=== PATIENT | female | born 1950 | race Hispanic/Latino ===

== ENCOUNTER → 2020-03-13 | Day surgery (SDC) | payer MEDICARE, OTHER ==
[2020-03-10 11:58] LABS: BASOPHILS # (AUTO) 0.1 (0.0-0.1); BASOPHILS % 0.5 % (0.0-1.0); EOSINOPHILS # (AUTO) 0.1 (0.0-0.4); EOSINOPHILS % 1.2 % (0.0-6.0); HEMATOCRIT 43.9 % (38.2-49.6); HEMOGLOBIN 14.1 g/dL (14.0-18.0); LYMPHOCYTES # (AUTO) 2.4 (1.0-3.2); LYMPHOCYTES % 21.2 % (18.0-39.1); MEAN CORPUSCULAR HGB CONC 32.1 g/dL (31-35); MEAN CORPUSCULAR VOLUME 84.1 fL (81-99); MONOCYTES # (AUTO) 0.8 (0.2-0.8); MONOCYTES % 6.8 % (4.4-11.3); NEUTROPHILS # (AUTO) 7.8 (2.1-6.9); NEUTROPHILS % 69.7 % (38.7-80.0); PLATELET COUNT 337 x10e3/uL (140-360); RED BLOOD COUNT 5.22 x10e6/uL (4.3-5.7); RED CELL DISTRIBUTION WIDTH 14.4 % (11.7-14.4)
[~2020-03-13] MED LIST: FENTANYL CITRATE/PF 100MCG/2 ML INJ ONE; GABAPENTIN300 MG PO; GLUCAGON FOR INJ 1 MG VIAL ONE; GLYCOPYRROLATE INJ 0.2 MG/ML VIAL ONE; HYOSCYAMINE 0.125 MG TAB ONE; LIDOCAINE HCL 2% LOCAL INJ 5 ML SDV VIAL INJ ONE; METHOCARBAMOL750 MG PO; MIDAZOLAM HCL 2 MG/2 ML VIAL ONE; NORCO 5-325 TA1 EACH PO; PROPOFOL IV EMULSION 10 MG/ML 20 ML VIAL ONE
--- OUTSIDE RECORDS SUMMARY | 2020-03-13 09:41 | XMS REPORT | Continuity of Care Document ---
Author Author [employer] Address Unknown Phone Unavailable Care Team Providers Care Mobile Sales Assistant Name Role Phone [employer] Unavailable Un available Problems Problem Status Onset Date Classification Date Reported Comments Source Primary osteoarthritis of left hand Active Problem Gio Herring Piriformis syndrome of right side Active Problem Gio Herring Primary osteoarthritis, right hand Active Problem Gio Herring Other chronic pain Active Problem 04/26/2018 Gio Herring Right hip pain Active Problem 04/26/2018 Gio Herring Pain in right knee Active Problem 04/26/2018 Gio Herring Bursitis of right hip Active Problem 04/26/2018 Gio Herring Encounter for long-term (current) use of other medications Active Prob kadie 04/26/2018 Gio Herring Lumbago with sciatica, right side Active Diagnosis 0 04/26/2018 Gio Herring Lumbar and sacral arthritis Ac tive Diagnosis 0 04/26/2018 Gio Herring Medications Medication Details Route Status Patient Instructions Ordering Provider Order Date Source Naproxen 1 tablet Orally Active 500 MG Orally Twice a d ay Fakoya 10/25/2017 Gio Herring Omeprazole 1 capsule Orally Active 20 MG Orally Once a day Nima Herring Meloxicam 1 tablet Orally Active 15 MG Orally Once a day as needed Nima Herring Naproxen 1 tablet with food or milk as needed Orally Active 500 MG Orally Once a day with food Nima Herring Allergies, Adverse Reactions, Alerts Substance Category Reaction Severity Reaction type Status Date Reported Comments Source Codein Adverse Reaction shortness of breath Adverse Reaction Active 04/17/2018 Gio Herring Immunizations No Data Provided for This Section Results No Data Provided for This Section Pathology Reports No Data Provided for This Section Diagnostic Reports No Data Provided for This Section Consultation Notes No Data Provided for This Section Discharge Summaries No Data Provided for This Section History and Physicals No Data Provided for This Section Vital Signs Vital Sign Value Date Comments Source Weight 135 04/17/2018 Gio Herring Height 57 0 04/17/2018 Gio Herring Temperature Oral (F) 97.6 F 04/17/2018 Gio Herring Heart Rate 56 04/17/2018 Gio Herring Diastolic (mm Hg) 60 04/17/2018 Gio Herring Systolic (mm Hg) 108 04/17/2018 Gio Herring Systolic (mm Hg) 118 01/15/2018 Gio Herring Weight 133 01/15/2018 Gio Herring Height 57 0 01/15/2018 Gio Herring Temperature Oral (F) 97.8 F 01/15/2018 Gio Herring Heart Rate 70 01/15/2018 Gio Herring Diastolic (mm Hg) 60 01/15/2018 Gio Herring Weight 134 10/25/2017 Gio Herring Height 57 1 12/26/2016 Gio Herring Temperature Oral (F) 98.8 F 10/25/2017 Gio Herring Heart Rate 64 10/25/2017 Gio Herring Diastolic (mm Hg) 68 10/25/2017 Gio Herring Systolic (mm Hg) 128 10/25/2017 Gio Herring Encounters No Data Provided for This Section Procedures No Data Provided for This Section Assessment and Plan No Data Provided for This Section Plan of Care No Data Provided for This Section Social History No Data Provided for This Section Family History No Data Provided for This Section Advance Directives No Data Provided for This Section Functional Status No Data Provided for This Section
--- OUTSIDE RECORDS SUMMARY | 2020-03-13 09:41 | XMS REPORT ---
Author Author PONCHO Herring Organization [employer] Address Unknown Phone Unavailable Care Team Providers Care Podopediatrician Name Role Phone Rogelio Herring CP Unavailable Allergies No Known Allergies Problems Problem Type Condition Code Onset Dates Condition Statu s Problem Other chronic pain G89.29 Active Problem Bursitis of right hip M70.71 Active Problem Primary osteoarthritis of left hand M19.042 Active Problem Encounter for long-term (current) use of other medicat ions Z79.899 Active Problem Right hip pain M25.551 Active Problem Pain in right knee M25.561 Active Problem Piriformis syndrome of right side G57.01 Active Problem Primary osteoarthritis, right hand M19.041 Active Medications No Known Medications Results No Known Results Summary Purpose [employer] Submission
--- OUTSIDE RECORDS SUMMARY | 2020-03-13 09:41 | XMS REPORT ---
Author Author PONCHO Herring Organization [employer] Address Unknown Phone Unavailable Care Team Providers Care Tapering Machine Operator Name Role Phone Rogelio Herring CP Unavailable Allergies No Known Allergies Problems Problem Type Condition Code Onset Dates Condition Statu s Problem Pain in right knee M25.561 Active Problem Other chronic pain G89.29 Active Problem Encounter for long-term (current) use of other medicat ions Z79.899 Active Problem Bursitis of right hip M70.71 Active Problem Lumbago with sciatica, right side M54.41 Active Problem Primary osteoarthritis, right hand M19.041 Active Problem Right hip pain M25.551 Active Problem Primary osteoarthritis of left hand M19.042 Active Problem Piriformis syndrome of right side G57.01 Active Medications No Known Medications Results No Known Results Summary Purpose [employer] Submission
--- OUTSIDE RECORDS SUMMARY | 2020-03-13 09:41 | XMS REPORT ---
Author Author PONCHO Herring Organization [employer] Address Unknown Phone Unavailable Care Team Providers Care Railroad Surveyor Name Role Phone Rogelio Herring CP Unavailable Allergies No Known Allergies Problems Problem Type Condition Code Onset Dates Condition Statu s Problem Primary osteoarthritis of left hand M19.042 Active Problem Piriformis syndrome of right side G57.01 Active Problem Primary osteoarthritis, right hand M19.041 Active Problem Other chronic pain G89.29 Active Problem Right hip pain M25.551 Active Problem Pain in right knee M25.561 Active Medications No Known Medications Results No Known Results Summary Purpose [employer] Submission
--- OUTSIDE RECORDS SUMMARY | 2020-03-13 09:41 | XMS REPORT ---
Author Author [employer] Organization [employer] Address Unknown Phone Unavailable Care Team Providers Care Student Life Coordinator Name Role Phone Luana Teran CP Unavailable Allergies, Adverse Reactions, Alerts Substance Reaction Event Type Codein shortness of breath Non Drug Allergy Problems Problem Type Condition Code Onset Dates Condition Statu s Assessment Primary osteoarthritis of left hand M19.042 Active Assessment Right hip pain M25.551 Active Assessment Primary osteoarthritis, right hand M19.041 Active Assessment Other chronic pain G89.29 Active Assessment Pain in right knee M25.561 Active Problem Primary osteoarthritis of left hand M19.042 Active Problem Piriformis syndrome of right side G57.01 Active Problem Primary osteoarthritis, right hand M19.041 Active Problem Other chronic pain G89.29 Active Assessment Piriformis syndrome of right side G57.01 Active Problem Right hip pain M25.551 Active Problem Pain in right knee M25.561 Active Medications Medication Code System Code Instructions Start Date End Date Status Dosage Omeprazole [facility] 17666617480 20 MG Orally Once a day A ctive 1 capsule Naproxen [facility] [address]-39 500 MG Orally Twice a day Oct 25, 2017 Inactive 1 tablet Meloxicam [facility] 40483567944 15 MG Orally Once a day as needed Active 1 tablet Vital Signs Date/Time: Oct 25, 2017 BMI 28.99 Index Weight 134 lbs Height 57 in Temperature 98.8 F Cardiac Monitoring Heart Rate 64 /min Blood Pressure Diastolic 68 mm Hg Blood Pressure Systolic 128 mm Hg Results No Known Results Summary Purpose [employer] Submission
--- OUTSIDE RECORDS SUMMARY | 2020-03-13 09:41 | XMS REPORT ---
Author Author PONCHO Herring Organization [employer] Address Unknown Phone Unavailable Care Team Providers Care Public Service Director Name Role Phone Rogelio Herring CP Unavailable Allergies, Adverse Reactions, Alerts Substance Reaction Event Type Codein shortness of breath Non Drug Allergy Problems Problem Type Condition Code Onset Dates Condition Statu s Assessment Primary osteoarthritis of left hand M19.042 Active Problem Other chronic pain G89.29 Active Assessment Primary osteoarthritis, right hand M19.041 Active Assessment Bursitis of right hip M70.71 Active Assessment Encounter for long-term (current) use of other [...] Primary osteoarthritis, right hand M19.041 Active Medications Medication Code System Code Instructions Start Date End Date Status Dosage Omeprazole ND 22410322073 20 MG Orally Once a day A ctive 1 capsule Meloxicam ND 68707582248 15 MG Orally Once a day as needed Active 1 tablet Naproxen ND 97494552021 500 MG Orally every 12 hrs Active 1 tablet with food or milk as needed Vital Signs Date/Time: January 15, 2018 Blood Pressure Systolic 118 mm Hg Weight 133 lbs Height 57 in Temperature 97.8 F Cardiac Monitoring Heart Rate 70 /min Blood Pressure Diastolic 60 mm Hg Results No Known Results Summary Purpose [employer] Submission
--- OUTSIDE RECORDS SUMMARY | 2020-03-13 09:41 | XMS REPORT ---
Author Author PONCHO Herring Organization [employer] Address Unknown Phone Unavailable Care Team Providers Care Keyliner Name Role Phone Rogelio Herring CP Unavailable Allergies, Adverse Reactions, Alerts Substance Reaction Event Type Codein shortness of breath Non Drug Allergy Problems Problem Type Condition Code Onset Dates Condition Statu s Assessment Lumbago with sciatica, right side M54.41 Active Problem Pain in right knee M25.561 [...] Piriformis syndrome of right side G57.01 Active Assessment Primary osteoarthritis of left hand M19.042 Active Assessment Primary osteoarthritis, right hand M19.041 Active Assessment Pain in right knee M25.561 Active Medications Medication Code System Code Instructions Start Date End Date Status Dosage Omeprazole ND 68361771647 20 MG Orally Once a day A ctive 1 capsule Naproxen ND 22933455580 500 MG Orally Once a day with food Active 1 tablet with food or milk as needed Vital Signs Date/Time: April 17, 2018 BMI 29.21 Index Weight 135 lbs Height 57 in Temperature 97.6 F Cardiac Monitoring Heart Rate 56 /min Blood Pressure Diastolic 60 mm Hg Blood Pressure Systolic 108 mm Hg Results No Known Results Summary Purpose [employer] Submission
--- OUTSIDE RECORDS SUMMARY | 2020-03-13 09:41 | XMS REPORT ---
Author Author PONCHO Herring Organization [employer] Address Unknown Phone Unavailable Care Team Providers Care Clinical Pharmacy Specialist Name Role Phone Rogelio Herring CP Unavailable Allergies No Known Allergies Problems Problem Type Condition Code Onset Dates Condition Statu s Problem Other chronic pain G89.29 Active Problem Right hip pain M25.551 Active Problem Pain in right knee M25.561 Active Assessment Lumbar and sacral arthritis M48.9 Active Assessment Lumbago with sciatica, right side M54.41 Active Problem Lumbago with sciatica, right side M54.41 Active Problem Encounter for long-term (current) use of other medicat ions Z79.899 Active Problem Lumbar and sacral arthritis M48.9 Active Problem Piriformis syndrome of right side G57.01 Active Problem Primary osteoarthritis, right hand M19.041 Active Problem Bursitis of right hip M70.71 Active Problem Primary osteoarthritis of left hand M19.042 Active Medications No Known Medications Results No Known Results Summary Purpose [employer] Submission
--- OUTSIDE RECORDS SUMMARY | 2020-03-13 09:42 | XMS REPORT ---
[facility] Address [address] [place] [address] Phone Unavailable Care Team Providers Care Studio Musician Name Role Phone WILLY NUR M.D. Attphys Unavailable Problems Condition Name Condition Details Condition Category Status Onset Date Resolution Date Last Treatment Date Treating Clinician Comments Source History of high cholesterol History of high cholesterol Problem Resolved [facility] Right hip pain Right hip pain Problem Active [facility] Tear of right gluteus medius tendon Tear of right gluteus medius tendon Problem Active [facility] Allergies, Adverse Reactions, Alerts This patient has no known allergies or adverse reactions. Social History Smoking Status Start Date Stop Date Source Never smoker [facility] Medications Ordered Medication Name Filled Medication Name Start Date Stop Da te Current Medication? Ordering Clinician Indication Dosage Frequency Signature (SIG) Comments Components Source Celecoxib 200 MG Oral Capsule Celecoxib 200 MG Oral Capsule 2018 00:00:00 Yes WILLY NUR M.D. 1 Q0.5D TAKE 1 CAPSULE TWICE DAILY [facility] Omeprazole 20 MG Oral Tablet Delayed Release Omeprazol e 20 MG Oral Tablet Delayed Release Yes [facility] Naproxen TABS Naproxen TABS Yes [facility] Atorvastatin Calcium TABS Atorvastatin Calcium TABS Yes [facility] Vital Signs Vital Name Observation Time Observation Value Comments Source Height 2019-06-07 08:15:00 57 [in_us] [facility] Weight 2019-06-07 08:15:00 134 [lb_av] [facility] Body Mass Index Calculated 2019-06-07 08:15:00 29 kg/m2 [facility] Procedures Procedure Date / Time Performed Performing Clinician Sourc e [U] XRAY HIP UNILATERAL MIN 2 VWS RIGHT [id number] 2019-06-06 00:00:0 0 [facility] History of Lumbar vertebral fusion [facility] Encounters Start Date/Time End Date/Time Encounter Type Admission Type Attendi ng Clinicians Care Facility Care Department Encounter ID Source 2020-02-28 07:38:35 Outpatient [facility] [id number] [facility] 2020-01-10 08:18:16 Outpatient [facility] [id number] [facility] 2020-03-03 07:17:00 2020-03-03 07:17:00 Outpatient [facility] [id number] [facility] 2019-11-21 13:10:00 2019-11-21 13:10:00 Outpatient [facility] [id number] [facility] 2019-10-10 14:29:00 2019-10-10 06:35:00 Inpatient [facility] [id number] [facility] 2019-09-10 13:30:00 2019-09-10 13:30:00 Outpatient [facility] [id number] [facility]SE 2019-06-07 07:30:00 2019-06-07 07:30:00 Appointment; WILLY NUR M.D. BRALY, [place], M.D. [facility] [id number] [facility] 2018-04-25 13:06:00 2018-04-25 13:06:00 Outpatient Rogelio Herring MD [place] [id number] Rogelio Herring MD 2018-04-17 14:45:00 2018-04-17 14:45:00 Outpatient Rogelio Herring MD PA [id number] Rogelio Herring MD 2018-04-17 14:35:00 2018-04-17 14:35:00 Outpatient Rogelio Herring MD PA [id number] Rogelio Herring MD 2018-01-27 12:18:00 2018-01-27 12:18:00 Outpatient Rogelio Herring MD PA [id number] Rogelio Herring MD 2018-01-15 15:30:00 2018-01-15 15:30:00 Outpatient Rogelio Herring MD [place] [id number] Rogelio Herring MD 2018-01-11 13:07:00 2018-01-11 13:07:00 Outpatient Rogelio Herring MD [place] [id number] Rogelio Herring MD 2017-10-25 08:45:00 2017-10-25 08:45:00 Outpatient Rogelio Herring MD PA Rogelio Herring MD [place] [id number] Rogelio Herring MD Results Test Description Test Time Test Comments Results Result Comments Source [U] XRAY HIP UNILATERAL MIN 2 VWS RIGHT [id number] 2019-06-07 07:10:0 0 Images acquired, not reported on this accession number. [facility]
--- OUTSIDE RECORDS SUMMARY | 2020-03-13 09:42 | XMS REPORT | Summary of Care ---
Author Author PONCHO NUR M.D. Organization Unknown Address Unknown Phone Unavailable Care Team Providers Care Bariatric Coordinator Name Role Phone WILLY NUR M.D. Unavailable Unavailable CAROLINE GAITAN MD Unavailable Unavailable WILLY NUR II, MD Unavailable Unavailable Unavailable Unavailable Functional Status Name Dates Details Functional status health issues are not documented Status: Name Dates Details Cognitive status health issues are not d ocumented Status: Problems Name Dates Details Right hip pain (719.45, M25.551) Status: Active Tear of right gluteus medius tendon (843 .8, S76.011A) Status: Active Medications Name Dates Details Omeprazole 20 MG Oral Tablet Delayed Rel ease Active Naproxen TABS * Refills: 0 Active Atorvastatin Calcium TABS * Refills: 0 Active Celecoxib 200 MG Oral Capsule TAKE 1 CAPSULE TWICE DAILY * Quantity: 56 Refills: 0 WILLY NUR M.D. * Start : 07-Jun-2019 Active Allergies and Adverse Reactions Name Dates Details codeine (Allergy) Status: Active Past Medical History Name Dates Details History of high cholesterol (V12.29, Z86 .39) Status: Resolved Procedures Procedure Dates Details History of Lumbar vertebral fusion Compl eted Immunization Name Dates Details Immunizations not documented Family History Name Dates Details No pertinent family history (V49.89, Z78 .9) Comments: Other Status: Active Social History Name Dates Details - Status: Name Dates Details Never smoker Vital Signs Date Test Result Details 07-Jun-20198:15 Height 57 in Status: Weight 134 lb Status: Body Mass Index Calculated 29 kg/m2 Status: Body Surface Area Calculated 1.52 m2 Status: Results Date Description Value Details 07-Jun-20197:10 [U] XRAY HIP UNILATERAL MIN 2 VWS RIGHT [id number] XR HIP UNILATERAL MIN 2 VWS RIGHT Images acquired, not reported on this accession number. Plan of Care Name Dates Details Planned Observations Planned Goals not documented Interventions Provided Medication Changes* Celecoxib 200 MG Oral Capsule - Start Labs/Procedures/Imaging* [U] XRAY HIP UNILATERAL MIN 2 VWS RIGHT [id number]; Done: 07 Jun 2019 * Tobacco Use Screening; Done: 07 Jun 2019 Plan* 68-year-old female with mild degenerative changes of the right hip unlikely the cause of patient's pain which is more posterior and lateral. Recommended low back and core strengthening program as well as hip abductor strengthening. We will give her a month supply of Celebrex however she is to check with her PCP if this is okay to take. No surgical intervention of her hip indicated. She will follow-up on a as needed basis. All questions answered and are happy with above plan. * Agree with the CC and HPI above. Instructions Name Dates Details Instructions not documented Encounters Appointment; WILLY NUR M.D. Encounter Diagnosis: Problem not documented On: 07-Jun-2019 7:30
[2020-03-13 13:05] VITALS: BP 138/66
--- NOTE | 2020-03-13 20:04 | Operative Report ---
DATE OF PROCEDURE: 03/13/2020 SURGEON: Patrick Ruano MD PROCEDURE: Colonoscopy with polypectomy and biopsies. INDICATIONS FOR COLONOSCOPY: Colorectal cancer screening, lower abdominal pain. MEDICATIONS: The patient was done under MAC, please see anesthesiologist's note. PROCEDURE IN DETAIL: With the patient in left lateral decubitus position, flexible fiberoptic Olympus colonoscope was inserted into the rectum with ease and advanced all the way to the cecum. [id number] amount of retained fecal material was noted in the transverse colon and the proximal descending colon. One polyp was removed per cold snare polypectomy from the cecum. The rest of the ascending grossly appeared to be within normal limits. Whatever was visualized, the mucosa overlying the transverse and descending appeared to be within normal limits. Some patchy mild inflammatory changes were noted in the sigmoid colon. Biopsies were obtained. The rectum was grossly appeared to be within normal limits. The scope was then retroflexed into the distal rectum. Small internal hemorrhoids were noted, none of which was actively bleeding. The scope was then straightened out, it was subsequently withdrawn, the patient tolerated the procedure well. IMPRESSION: 1. Suboptimal prep. 2. Cecal polyp removed per cold snare polypectomy. 3. Mild segmental colitis, sigmoid colon. 4. Internal hemorrhoids, none actively bleeding. PLAN: Follow up histology. Initiate high-fiber, low-fat diet. Initiate high-fiber supplement. The patient will need a repeat colonoscopy after a better prep later this year. Patrick Ruano MD [facility] [place]/MODL /[id number] cc: Joseline Casey MD
== END | disposition home or self-care (01) ==
LOC: OR 09:35
PROVIDERS: ATTEND Internal Medicine Gastroenterology
DX: K50.10 Crohn's disease of large intestine without complications (principal); D12.0 Benign neoplasm of cecum; K64.8 Other hemorrhoids; K59.00 Constipation, unspecified; K76.0 Fatty (change of) liver, not elsewhere classified; F41.9 Anxiety disorder, unspecified; Z88.6 Allergy status to analgesic agent; Z01.810 Encounter for preprocedural cardiovascular examination; Z01.812 Encounter for preprocedural laboratory examination; Z11.59 Encounter for screening for other viral diseases
CPT/HCPCS: 36415; 45380; 45385; 85025; 87635; 93005; J1610; J2001; J2250; J2704; J3010; 45378

== ENCOUNTER → 2021-03-20 | Day surgery (SDC) | payer MEDICARE ==
[2021-03-17 15:40] LABS: BASOPHILS # (AUTO) 0.1 (0.0-0.1); BASOPHILS % 0.8 % (0.0-1.0); EOSINOPHILS # (AUTO) 0.3 (0.0-0.4); EOSINOPHILS % 4.5 % (0.0-6.0); HEMATOCRIT 40.7 % (34.2-44.1); HEMOGLOBIN 12.9 g/dL (12.0-16.0); LYMPHOCYTES # (AUTO) 2.5 (1.0-3.2); LYMPHOCYTES % 34.3 % (18.0-39.1); MEAN CORPUSCULAR HEMOGLOBIN 27.4 pg (28-32); MEAN CORPUSCULAR HGB CONC 31.7 g/dL (31-35); MEAN CORPUSCULAR VOLUME 86.4 fL (81-99); MONOCYTES # (AUTO) 0.7 (0.2-0.8); NEUTROPHILS # (AUTO) 3.6 (2.1-6.9); NEUTROPHILS % 50.3 % (38.7-80.0); PLATELET COUNT 278 x10e3/uL (140-360); RED BLOOD COUNT 4.71 x10e6/uL (3.6-5.1); RED CELL DISTRIBUTION WIDTH 13.8 % (11.7-14.4)
[~2021-03-20] MED LIST changes: +ACETAMINOPHEN500 M1 PO; +DICYCLOMINE HCL 20 MG TAB ONE; +DICYCLOMINE HCL10 MG PO; -GLUCAGON FOR INJ 1 MG VIAL ONE; -GLYCOPYRROLATE INJ 0.2 MG/ML VIAL ONE; -HYOSCYAMINE 0.125 MG TAB ONE; +HYOSCYAMINE SULFATE 0.5 MG/ML INJ ONE; +LYRICA25 MG PO; +LYRICA75 MG PO; +ULTRAM50 MG PO
== END | disposition home or self-care (01) ==
LOC: OR 07:00
PROVIDERS: ATTEND Internal Medicine Gastroenterology
DX: Z09 Encounter for follow-up examination after completed treatment for conditions other than malignant neoplasm (principal); D12.3 Benign neoplasm of transverse colon; K64.8 Other hemorrhoids; K21.9 Gastro-esophageal reflux disease without esophagitis; M19.90 Unspecified osteoarthritis, unspecified site; M54.9 Dorsalgia, unspecified; R01.1 Cardiac murmur, unspecified; R00.1 Bradycardia, unspecified; Z88.6 Allergy status to analgesic agent; Z01.810 Encounter for preprocedural cardiovascular examination; Z01.812 Encounter for preprocedural laboratory examination; Z20.822 Contact with and (suspected) exposure to COVID-19
CPT/HCPCS: 36415; 45380; 85025; 88305; 93005; J1980; J2001; J2250; J2704; J3010; U0002

== ENCOUNTER → 2021-09-22 | Outpatient (CLI) | payer MEDICARE ==
[~2021-09-22] MED LIST changes: -DICYCLOMINE HCL 20 MG TAB ONE; -FENTANYL CITRATE/PF 100MCG/2 ML INJ ONE; -HYOSCYAMINE SULFATE 0.5 MG/ML INJ ONE; +IOPAMIDOL 370 MG/ML 200 ML INFUS..BTL INJ ONE; -LIDOCAINE HCL 2% LOCAL INJ 5 ML SDV VIAL INJ ONE; -MIDAZOLAM HCL 2 MG/2 ML VIAL ONE; -PROPOFOL IV EMULSION 10 MG/ML 20 ML VIAL ONE; +SODIUM CHLORIDE 0.9% 50ML 50 ML ONE
[2021-09-22 10:14] LABS: CREATININE, SERUM 0.79 mg/dL (0.57-1.11)
== END ==
LOC: US 09:11
PROVIDERS: ATTEND Internal Medicine Gastroenterology
DX: R10.11 Right upper quadrant pain (principal); R10.31 Right lower quadrant pain
CPT/HCPCS: 36415; 74177; 76700; 82565; 84520; Q9967

== ENCOUNTER → 2021-10-08 | Outpatient (CLI) | payer MEDICARE ==
[~2021-10-08] MED LIST changes: -IOPAMIDOL 370 MG/ML 200 ML INFUS..BTL INJ ONE; -SODIUM CHLORIDE 0.9% 50ML 50 ML ONE
== END ==
LOC: NM 10:30
PROVIDERS: ATTEND Internal Medicine Gastroenterology
DX: R10.11 Right upper quadrant pain (principal); R10.31 Right lower quadrant pain; K76.0 Fatty (change of) liver, not elsewhere classified
CPT/HCPCS: 78227; A9537

== ENCOUNTER → 2021-10-29 | Day surgery (SDC) | payer MEDICARE ==
[2021-10-27 10:17] LABS: BASOPHILS # (AUTO) 0.1 (0.0-0.1); BASOPHILS % 0.8 % (0.0-1.0); EOSINOPHILS # (AUTO) 0.4 (0.0-0.4); EOSINOPHILS % 6.4 % (0.0-6.0); HEMATOCRIT 41.7 % (34.2-44.1); HEMOGLOBIN 13.5 g/dL (12.0-16.0); LYMPHOCYTES % 30.8 % (18.0-39.1); MEAN CORPUSCULAR HEMOGLOBIN 27.8 pg (28-32); MEAN CORPUSCULAR HGB CONC 32.4 g/dL (31-35); MONOCYTES # (AUTO) 0.7 (0.2-0.8); MONOCYTES % 10.2 % (4.4-11.3); NEUTROPHILS # (AUTO) 3.3 (2.1-6.9); NEUTROPHILS % 50.6 % (38.7-80.0); PLATELET COUNT 270 x10e3/uL (140-360); RED BLOOD COUNT 4.85 x10e6/uL (3.6-5.1); RED CELL DISTRIBUTION WIDTH 13.8 % (11.7-14.4)
[~2021-10-29] MED LIST changes: +FENTANYL CITRATE/PF 100MCG/2 ML INJ ONE; +HYOSCYAMINE SULFATE 0.5 MG/ML INJ ONE; +LIDOCAINE HCL 1% 2 ML AMP ONE; +LIDOCAINE HCL 2% LOCAL INJ 5 ML SDV VIAL INJ ONE; +ONDANSETRON HCL INJ 2MG/ML 2ML 2 MG/ML VIAL ONE; +PROPOFOL IV EMULSION 10 MG/ML 20 ML VIAL ONE
[2021-10-29 12:10] VITALS: BP 166/92
== END | disposition home or self-care (01) ==
LOC: OR 09:10
PROVIDERS: ATTEND Internal Medicine Gastroenterology
DX: K29.50 Unspecified chronic gastritis without bleeding (principal); B96.81 Helicobacter pylori [H. pylori] as the cause of diseases classified elsewhere; K52.9 Noninfective gastroenteritis and colitis, unspecified; K31.89 Other diseases of stomach and duodenum; K20.90 Esophagitis, unspecified without bleeding; K44.9 Diaphragmatic hernia without obstruction or gangrene; K21.9 Gastro-esophageal reflux disease without esophagitis; K62.89 Other specified diseases of anus and rectum; R00.1 Bradycardia, unspecified; M19.90 Unspecified osteoarthritis, unspecified site; Z88.6 Allergy status to analgesic agent; Z01.810 Encounter for preprocedural cardiovascular examination; Z01.812 Encounter for preprocedural laboratory examination; Z20.822 Contact with and (suspected) exposure to COVID-19; Z98.890 Other specified postprocedural states
CPT/HCPCS: 36415; 43239; 45380; 85025; 88305; 88312; 88342; 93005; C9113; J1980; J2001 ×2; J2405; J2704; J3010; U0002; 45378

== ENCOUNTER → 2022-12-16 | Outpatient (CLI) | payer MEDICARE ==
[~2022-12-16] MED LIST changes: +DIATRIZOATE MEGL/DIATRIZOA SOD 30 ML BTL PO ONE; -FENTANYL CITRATE/PF 100MCG/2 ML INJ ONE; -HYOSCYAMINE SULFATE 0.5 MG/ML INJ ONE; +IOPAMIDOL 370 MG/ML 100 ML INFUS..BTL INJ ONE; -LIDOCAINE HCL 1% 2 ML AMP ONE; -LIDOCAINE HCL 2% LOCAL INJ 5 ML SDV VIAL INJ ONE; +LORTAB 10 MG-3473 ML PO; -ONDANSETRON HCL INJ 2MG/ML 2ML 2 MG/ML VIAL ONE; -PROPOFOL IV EMULSION 10 MG/ML 20 ML VIAL ONE; +PROTONIX20 MG PO; +linzess PO
[2022-12-16 10:24] LABS: CREATININE, SERUM 0.8 mg/dL (0.57-1.11)
== END ==
LOC: CT 09:02
PROVIDERS: ATTEND Internal Medicine Gastroenterology
DX: R10.9 Unspecified abdominal pain (principal)
CPT/HCPCS: 36415; 74177; 82565; 84520; Q9963; Q9967

== ENCOUNTER → 2022-12-21 | Day surgery (SDC) | payer MEDICARE ==
[2022-12-16 10:04] LABS: BASOPHILS # (AUTO) 0.1 (0.0-0.1); BASOPHILS % 0.7 % (0.0-1.0); EOSINOPHILS # (AUTO) 0.1 (0.0-0.4); EOSINOPHILS % 1.6 % (0.0-6.0); HEMATOCRIT 43.7 % (34.2-44.1); HEMOGLOBIN 14.3 g/dL (12.0-16.0); LYMPHOCYTES # (AUTO) 2.1 (1.0-3.2); LYMPHOCYTES % 27.7 % (18.0-39.1); MEAN CORPUSCULAR HEMOGLOBIN 26.9 pg (28-32); MEAN CORPUSCULAR HGB CONC 32.7 g/dL (31-35); MEAN CORPUSCULAR VOLUME 82.1 fL (81-99); MONOCYTES # (AUTO) 0.7 (0.2-0.8); MONOCYTES % 8.8 % (4.4-11.3); NEUTROPHILS # (AUTO) 4.6 (2.1-6.9); NEUTROPHILS % 60.7 % (38.7-80.0); PLATELET COUNT 312 x10e3/uL (140-360); RED BLOOD COUNT 5.32 x10e6/uL (3.6-5.1); RED CELL DISTRIBUTION WIDTH 19.8 % (11.7-14.4)
[~2022-12-21] MED LIST changes: -DIATRIZOATE MEGL/DIATRIZOA SOD 30 ML BTL PO ONE; +FENTANYL CITRATE/PF 100MCG/2 ML INJ ONE; -IOPAMIDOL 370 MG/ML 100 ML INFUS..BTL INJ ONE; +LIDOCAINE HCL 2% LOCAL INJ 5 ML SDV VIAL INJ ONE; +PROPOFOL IV EMULSION 10 MG/ML 50 ML VIAL IV ONE; +PROPOFOL IV EMULSION 50 ML IV ONE
[2022-12-21 11:05] VITALS: BP 126/65
== END | disposition home or self-care (01) ==
LOC: OR 08:40
PROVIDERS: ATTEND Internal Medicine Gastroenterology
DX: K29.50 Unspecified chronic gastritis without bleeding (principal); K22.10 Ulcer of esophagus without bleeding; K44.9 Diaphragmatic hernia without obstruction or gangrene; K31.89 Other diseases of stomach and duodenum; K21.9 Gastro-esophageal reflux disease without esophagitis; A04.8 Other specified bacterial intestinal infections; K59.00 Constipation, unspecified; E78.00 Pure hypercholesterolemia, unspecified; M79.2 Neuralgia and neuritis, unspecified; R00.1 Bradycardia, unspecified; M54.9 Dorsalgia, unspecified; M19.90 Unspecified osteoarthritis, unspecified site; Z88.6 Allergy status to analgesic agent; Z01.810 Encounter for preprocedural cardiovascular examination; Z01.812 Encounter for preprocedural laboratory examination; Z79.899 Other long term (current) drug therapy
CPT/HCPCS: 36415; 43239; 85025; 88305; 88342; 93005; C9113; J2001; J2704; J3010; 88304; 88312